=== PATIENT | female | born 1965 | race African-American/Black ===

== ENCOUNTER 2016-04-12 17:20 | Emergency (ER) | payer MEDICAID ==
[2016-04-12] MEDS ORDERED: ASPIRIN 81 MG TABLET, CHEWABLE PO ONE (17:45)
--- NOTE | 2016-04-12 17:45 | ER Document Report ---
ED Medical Screen (RME) - General Stated Complaint: COUGH Mode of Arrival: Ambulatory Information source: Patient Notes: Patient complains of cough for the past 2 weeks that worsened today. Patient denies any fever. Cough has been nonproductive. Patient complains of chest pain that she trips to congestion. hx: CHF, hypertension, diabetes I have greeted and performed a rapid initial assessment of this patient. A comprehensive ED assessment and evaluation of the patient, analysis of test results and completion of the medical decision making process will be conducted by additional ED providers. TRAVEL OUTSIDE OF THE [place] IN LAST 30 DAYS: No - Related Data Allergies/Adverse Reactions: No Known Allergies Allergy (Verified 04/12/16 17:41) Past Medical History - Past Medical History Cardiac Medical History: Reports: Hx Congestive Heart Failure, Hx Coronary Artery Disease - High cholesterol, Hx Hypercholesterolemia, Hx Hypertension Denies: Hx Heart Attack Pulmonary Medical History: Denies: Hx Asthma, Hx Bronchitis, Hx COPD, Hx Pneumonia Neurological Medical History: Denies: Hx Cerebrovascular Accident, Hx Seizures Endocrine Medical History: Reports: Hx Diabetes Mellitus Type 2 Musculoskeltal Medical History: Reports Hx Arthritis - Osteoarthritis Psychiatric Medical History: Reports: Hx Depression Past Surgical History: Reports: Hx Cardiac Catheterization, Hx Orthopedic Surgery. Denies: Hx Hysterectomy, Hx Pacemaker - Immunizations Hx Diphtheria, Pertussis, Tetanus Vaccination: Yes Physical Exam - Vital signs Vitals: Temp Pulse Resp BP Pulse Ox 98.4 F 90 20 143/88 H 95 04/12/16 17:31 04/12/16 17:31 04/12/16 17:31 04/12/16 17:31 04/12/16 17:31 - Respiratory Respiratory status: No respiratory distress Chest status: Nontender Breath sounds: Nonproductive cough Course - Vital Signs Vital signs: Temp Pulse Resp BP Pulse Ox 98.4 F 90 20 143/88 H 95 04/12/16 17:31 04/12/16 17:31 04/12/16 17:31 04/12/16 17:31 04/12/16 17:31
[2016-04-12] MEDS ORDERED: NORMAL SALINE 1000 ML 1,000 ML IV PRN (19:13)
[2016-04-12] MEDS ORDERED: BENZONATATE 100 MG CAPSULE PO ONE (19:13)
[2016-04-12] MEDS ORDERED: ONDANSETRON HCL INJ/PF 4 MG/2 ML SDV IV ONE (19:13)
--- NOTE | 2016-04-12 19:16 | ER Document Report ---
ED Respiratory Problem - General Chief Complaint: Cough Stated Complaint: COUGH Time seen by provider: 19:14 Mode of Arrival: Ambulatory Information source: Patient TRAVEL OUTSIDE OF THE [place] IN LAST 30 DAYS: No - HPI Patient complains to provider of: Chest pain, Cough, Short of breath Onset: Other - Weeks Duration: Continuous Quality of pain: Achy Severity: Moderate Pain Level: 3 Context: Hx CHF, Smoker Short of Breath: Mild Chest pain/discomfort: Tightness Cough: Productive Sputum amount: Small Sputum color: Yellow Sputum consistency: Mucoid Associated symptoms: Chest pain/discomfort, Congestion, Cough, Headache, Short of breath Similar symptoms previously: Yes Recently seen / treated by doctor: No Notes: Patient is a 50-year-old female with a history of hypertension, diabetes and congestive heart failure, who presents to the emergency room complaining of cough with chest tightness and congestion over the past 2 weeks, subjective fever, cough is productive of yellowish colored phlegm, she reports that the cough is painful, and she associates mild shortness of breath and generalized fatigue associated with symptoms, she reports her grandson was sick with similar symptoms recently, she denies any vomiting, no dysuria, no recent travel , she has attempted to take Robitussin at home for the symptoms with minimal relief - Related Data Allergies/Adverse Reactions: No Known Allergies Allergy (Verified 04/12/16 17:41) Past Medical History - General Information source: Patient - Social History Smoking Status: Current Every Day Smoker Chew tobacco use (# tins/day): No Frequency of alcohol use: Occasional Drug Abuse: None Family History: Reviewed & Not Pertinent Patient has suicidal ideation: No Patient has homicidal ideation: No - Past Medical History Cardiac Medical History: Reports: Hx Congestive Heart Failure, Hx Coronary Artery Disease - High cholesterol, Hx Hypercholesterolemia, Hx Hypertension Denies: Hx Heart Attack Pulmonary Medical History: Denies: Hx Asthma, Hx Bronchitis, Hx COPD, Hx Pneumonia Neurological Medical History: Denies: Hx Cerebrovascular Accident, Hx Seizures Endocrine Medical History: Reports: Hx Diabetes Mellitus Type 2 Renal/ Medical History: Denies: Hx Peritoneal Dialysis Musculoskeltal Medical History: Reports Hx Arthritis - Osteoarthritis Psychiatric Medical History: Reports: Hx Depression Past Surgical History: Reports: Hx Cardiac Catheterization, Hx Orthopedic Surgery. Denies: Hx Hysterectomy, Hx Pacemaker - Immunizations Hx Diphtheria, Pertussis, Tetanus Vaccination: Yes Review of Systems - Review of Systems Constitutional: Fever, Malaise EENT: Nose congestion Cardiovascular: Chest pain Respiratory: Cough, Short of breath Gastrointestinal: No symptoms reported Genitourinary: No symptoms reported Female Genitourinary: No symptoms reported Musculoskeletal: See HPI - Body aches Skin: No symptoms reported Hematologic/Lymphatic: No symptoms reported Neurological/Psychological: Headaches -: Yes All other systems reviewed and negative Physical Exam - Vital signs Vitals: Temp Pulse Resp BP Pulse Ox 98.4 F 90 20 143/88 H 95 04/12/16 17:31 04/12/16 17:31 04/12/16 17:31 04/12/16 17:31 04/12/16 17:31 Interpretation: Hypertensive - General General appearance: Alert In distress: None - HEENT Head: Normocephalic, Atraumatic Eyes: Normal Conjunctiva: Normal Extraocular movements intact: Yes Eyelashes: Normal Pupils: PERRL Sinus: Maxillary - Mild tenderness Nasal: Clear rhinorrhea Mouth/Lips: Normal Mucous membranes: Normal Pharynx: Normal Neck: Normal - Respiratory Respiratory status: No respiratory distress Chest status: Nontender Breath sounds: Normal Chest palpation: Normal - Cardiovascular Rhythm: Regular Heart sounds: Normal auscultation Murmur: No - Abdominal Inspection: Normal Distension: No distension Bowel sounds: Normal Tenderness: Nontender Organomegaly: No organomegaly - Back Back: Normal, Nontender - Extremities General upper extremity: Normal inspection, Nontender, Normal color, Normal ROM , Normal temperature General lower extremity: Normal inspection, Nontender, Normal color, Normal ROM , Normal temperature. No: Edu's sign - Neurological Neuro grossly intact: Yes Cognition: Normal Orientation: AAOx4 [place] Coma Scale Eye Opening: Spontaneous [place] Coma Scale Verbal: Oriented [place] Coma Scale Motor: Obeys Commands [place] Coma Scale Total: 15 Speech: Normal Motor strength normal: LUE, RUE, LLE, RLE Sensory: Normal - Psychological Associated symptoms: Normal affect, Normal mood - Skin Skin Temperature: Warm Skin Moisture: Dry Skin Color: Normal Course - Re-evaluation Re-evalutation: 04/12/16 20:20 Patient resting comfortably, reports no change in symptoms, additional cough suppressant medication and antibiotics have been ordered, lab and imaging findings were discussed with patient at bedside, patient will be discharged with prescriptions and information for follow-up, advised to return if symptoms worsen, patient acknowledges understanding and agreement with this plan - Vital Signs Vital signs: Temp Pulse Resp BP Pulse Ox 98.4 F 90 18 143/88 H 95 04/12/16 17:31 04/12/16 17:31 04/12/16 18:54 04/12/16 17:31 04/12/16 17:31 - Laboratory Result Diagrams: 04/12/16 19:31 04/12/16 19:31 Laboratory results interpreted by me: 04/12/16 04/12/16 04/12/16 19:31 19:31 19:31 MCH 26.5 L MCHC 31.2 L Glucose 115 H NT-Pro-B Natriuret Pep 1200 H - Diagnostic Test Radiology reviewed: Image reviewed, Reports reviewed - EKG Interpretation by Me EKG shows normal: Sinus rhythm Rate: Normal Rhythm: NSR, PVC's - Ventricular trigeminy When compared to previous EKG there are: No significant change Discharge - Discharge Clinical Impression: Acute bronchitis Qualifiers: Bronchitis organism: unspecified organism Qualified Code(s): J20.9 - Acute bronchitis, unspecified Condition: Stable Disposition: HOME, SELF-CARE Instructions: Bronchitis ([facility]) Additional Instructions: Follow up with your primary care provider in one to 2 days. Return to the emergency room immediately if symptoms worsen or any additional concerns. Prescriptions: Azithromycin [Zithromax 250 mg Tablet] 250 mg PO ASDIR PRN #4 tablet PRN Reason: Codeine/Promethazine HCl [Promethazine-Codeine Syrup] 5 ml PO Q6 PRN #120 ml PRN Reason: Cough
[2016-04-12 19:42] LABS: ABSOLUTE BASOPHILS # (AUTO) 0.1 10^3/uL (0.0-0.2); ABSOLUTE EOSINOPHILS # (AUTO) 0.1 10^3/uL (0.0-0.6); ABSOLUTE LYMPHOCYTES (AUTO) 3.2 10^3/uL (0.5-4.7); ABSOLUTE MONOCYTES (AUTO) 0.6 10^3/uL (0.1-1.4); ABSOLUTE NEUT (AUTO) 5.5 10^3/uL (1.7-8.2); BASOPHILS % (AUTO) 0.7 % (0-2); EOSINOPHILS % (AUTO) 1.1 % (0-6); HEMATOCRIT 38.9 % (36.0-47.0); HEMOGLOBIN 12.1 g/dL (12.0-15.5); HGB HCT DIFFERENCE -2.6; LYMPHOCYTES % (AUTO) 33.4 % (13-45); MEAN CORPUSCULAR HEMOGLOBIN 26.5 pg (27.0-33.4); MEAN CORPUSCULAR HGB CONC 31.2 g/dL (32.0-36.0); MEAN CORPUSCULAR VOLUME 85 fl (80-97); MONOCYTES % (AUTO) 6.7 % (3-13); RED BLOOD COUNT 4.57 10^6/uL (3.72-5.28); RED CELL DISTRIBUTION WIDTH 13.4 % (11.5-14.0); SEGMENTED NEUTROPHILS % (AUTO) 58.1 % (42-78); WHITE BLOOD COUNT 9.5 10^3/uL (4.0-10.5)
[2016-04-12 20:00] LABS: ALANINE AMINOTRANSFERASE 22 U/L (9-52); ALBUMIN 3.9 g/dL (3.5-5.0); ALKALINE PHOSPHATASE 79 U/L (38-126); ANION GAP 13 (5-19); ASPARTATE AMINO TRANSFERASE 18 U/L (14-36); BILIRUBIN,TOTAL 0.5 mg/dL (0.2-1.3); BLOOD UREA NITROGEN 18 mg/dL (7-20); CALCIUM 9.4 mg/dL (8.4-10.2); CARBON DIOXIDE 27 mmol/L (22-30); CHLORIDE 103 mmol/L (98-107); CREATINE KINASE 45 U/L (30-135); GLUCOSE 115 mg/dL (75-110); MAGNESIUM 1.7 mg/dL (1.6-2.3); POTASSIUM 4.3 mmol/L (3.6-5.0); SODIUM 142.6 mmol/L (137-145); TOTAL PROTEIN 6.8 g/dL (6.3-8.2)
[2016-04-12 20:12] LABS: TROPONIN I 0.013 ng/mL
[2016-04-12 20:13] LABS: CREATINE KINASE MB < 0.22 ng/mL (<4.55)
[2016-04-12] MEDS ORDERED: GUAIFENESIN/D-METHORPHAN (200-20 MG) SYRUP 10 ML PO ONE ×2 (20:20→20:22)
[2016-04-12] MEDS ORDERED: AZITHROMYCIN 250 MG TABLET PO ONE (20:20)
[2016-04-12 20:39] VITALS: BP 132/80
--- NOTE | 2016-04-13 08:15 | EKG REPORT ---
SEVERITY:- ABNORMAL ECG - SINUS RHYTHM VENTRICULAR TRIGEMINY LVH WITH IVCD AND SECONDARY REPOL ABNRM : Confirmed by: Ryan Segovia MD 13-Apr-2016 08:15:31
== END 2016-04-12 20:38 | disposition home or self-care (01) ==
LOC: ER 17:20
DX: J20.9 Acute bronchitis, unspecified (principal); R05 Cough; I10 Essential (primary) hypertension; E11.9 Type 2 diabetes mellitus without complications; I50.9 Heart failure, unspecified
CPT/HCPCS: 93005; 99284; 96360; 36415; 82553; 82550; 83735; 85025; 80053; 84484; 83880; 71020; 93010; J3490 ×2; Q0144; J7030

== ENCOUNTER 2017-07-18 04:09 | Emergency (ER) | payer MEDICAID ==
--- NOTE | 2017-07-18 05:08 | ER Document Report ---
ED General <VILLASEÑORDAMON BELL - Last Filed: 07/18/17 13:07> - General TRAVEL OUTSIDE OF THE [place] IN LAST 30 DAYS: No <CATHY AL - Last Filed: 07/18/17 19:30> - General Chief Complaint: Chest Pain Stated Complaint: CHEST PAIN Time Seen by Provider: 07/18/17 04:50 Notes: patient is a 51-year-old female patient is a 51-year-old female who presents emergency department the chief complaint of chest pain. Patient states that she had initial episode yesterday lasting about 3 hours. Patient states that she was sitting stationary when she had left chest wall pressure that improved after she took her home coreg. She denies any sharp stabbing pain, heartburn. Patient states that this evening approximately an hour after physical activity she had return of the same chest pressure in the left lateral chest wall that was not reproducible palpation. At this time she states she is chest pain-free. Primary care physician is Dr. De La Garza, follows with coding educator in [facility]. Past medical history significant for dilated cardiomyopathy status post AICD placement, hypertension, diabetes, hyperlipidemia, coronary artery disease, history of pancreatitis. Home medications include spironolactone, Crestor, Altace, Percocet, metformin, Amaryl, Lasix, digoxin, Coreg (CATHY AL) - Related Data Allergies/Adverse Reactions: No Known Allergies Allergy (Verified 04/12/16 17:41) Past Medical History - Social History Smoking Status: Current Every Day Smoker Chew tobacco use (# tins/day): No Frequency of alcohol use: None Drug Abuse: None Family History: Reviewed & Not Pertinent Patient has suicidal ideation: No Patient has homicidal ideation: No - Past Medical History Cardiac Medical History: Reports: Hx Congestive Heart Failure, Hx Coronary Artery Disease - High cholesterol, Hx Hypercholesterolemia, Hx Hypertension Denies: Hx Heart Attack Pulmonary Medical History: Denies: Hx Asthma, Hx Bronchitis, Hx COPD, Hx Pneumonia Neurological Medical History: Denies: Hx Cerebrovascular Accident, Hx Seizures Endocrine Medical History: Reports: Hx Diabetes Mellitus Type 2 Renal/ Medical History: Denies: Hx Peritoneal Dialysis Musculoskeltal Medical History: Reports Hx Arthritis - Osteoarthritis Psychiatric Medical History: Reports: Hx Depression Past Surgical History: Reports: Hx Cardiac Catheterization, Hx Orthopedic Surgery. Denies: Hx Hysterectomy, Hx Pacemaker - Immunizations Hx Diphtheria, Pertussis, Tetanus Vaccination: Yes <CATHY AL - Last Filed: 07/18/17 19:30> Review of Systems - Review of Systems Constitutional: No symptoms reported EENT: No symptoms reported Cardiovascular: See HPI Respiratory: No symptoms reported Gastrointestinal: No symptoms reported Musculoskeletal: No symptoms reported Skin: No symptoms reported Neurological/Psychological: No symptoms reported -: Yes All other systems reviewed and negative <CATHY AL - Last Filed: 07/18/17 19:30> Physical Exam <DAMON VILLASEÑOR - Last Filed: 07/18/17 13:07> <CATHY AL - Last Filed: 07/18/17 19:30> - Vital signs Vitals: Resp Pulse Ox 22 H 93 07/18/17 04:33 07/18/17 04:33 - Notes Notes: PHYSICAL EXAM GENERAL: Alert, interacts well. HEAD: Normocephalic, atraumatic. EYES: Pupils equal, round, and reactive to light. Extraocular movements intact. ENT: Oral mucosa moist, tongue midline. NECK: Full range of motion. Supple. Trachea midline. LUNGS: Clear to auscultation bilaterally, no wheezes, rales, or rhonchi. No respiratory distress. HEART: Regular rate and rhythm. No murmurs, gallops, or rubs. ABDOMEN: Soft, nondistended, nontender. No guarding, rebound, or rigidity.. Bowel sounds present in all 4 quadrants. EXTREMITIES: Moves all 4 extremities spontaneously. No edema, radial and dorsalis pedis pulses 2/4 bilaterally. No cyanosis. NEUROLOGICAL: Alert and oriented x4. Normal speech. PSYCH: Normal affect, normal mood. SKIN: Warm, dry, normal turgor. No rashes or lesions noted. (CATHY AL) Course - Laboratory Result Diagrams: 07/18/17 05:15 07/18/17 05:15 <DAMON VILLASEÑOR - Last Filed: 07/18/17 13:07> - Laboratory Result Diagrams: 07/18/17 05:15 07/18/17 05:15 - Diagnostic Test Radiology reviewed: Image reviewed, Reports reviewed - EKG Interpretation by Me EKG shows normal: Sinus rhythm. abnormal: ST-T Waves Rate: Normal Rhythm: PVC's [place]/QRS: IVCD When compared to previous EKG there are: No significant change <CATHY AL - Last Filed: 07/18/17 19:30> - Re-evaluation Re-evalutation: 07/18/17 13:07 Patient currently chest pain-free at this time. She remained stable. Repeat troponin is now elevated at 0.853. This is twice what her earlier troponin was. I have called and discussed this with coding educator who has agreed to admit the patient to [facility]. The patient will be transferred there. She currently has nitro paste on her chest and the coding educator at that that was fine that she required no further treatment at this time. Patient will be transferred to [facility] as soon as possible. Mortgage Loan Underwriter stated that the patient is okay to eat while waiting. (DAMON VILLASEÑOR) 07/18/17 06:12 Patient is a 51-year-old female who is hemodynamically stable, no acute distress. Troponin did come back elevated at 0.430. Patient also states that she has return of her chest pain and rating it as a 2/5, described as pressure. Presentation is concerning for a NSTEMI. Repeat EKG was ordered. 07/18/17 07:40 patients chest pain returned, about a 3/5 in severity. Will start nitro gtt 07/18/17 07:54 Mortgage Loan Underwriter pony edger requesting repeat troponin at 915. Signed case to Damon Villaseñor NP 07/18/17 19:30 Transport at the bedside. VSS. Patient chest pain free. A&Ox4. stable for transport (CATHY AL) - Vital Signs Vital signs: Temp Pulse Resp BP Pulse Ox 98.2 F 85 16 98/56 L 94 07/18/17 19:01 07/18/17 05:01 07/18/17 19:01 07/18/17 19:01 07/18/17 19:01 - Laboratory Laboratory results interpreted by me: 07/18/17 07/18/17 05:15 05:15 Hgb 11.9 L BUN 23 H Glucose 143 H Discharge <DAMON VILLASEÑOR - Last Filed: 07/18/17 13:07> <CATHY AL - Last Filed: 07/18/17 19:30> - Discharge Disposition: [facility] Referrals: ALVARADO DE LA GARZA MD [Primary Care Provider] - Follow up as needed
[2017-07-18 05:26] LABS: ABSOLUTE BASOPHILS # (AUTO) 0.1 10^3/uL (0.0-0.2); ABSOLUTE LYMPHOCYTES (AUTO) 3.6 10^3/uL (0.5-4.7); ABSOLUTE MONOCYTES (AUTO) 0.4 10^3/uL (0.1-1.4); ABSOLUTE NEUT (AUTO) 4.2 10^3/uL (1.7-8.2); BASOPHILS % (AUTO) 1.3 % (0-2); EOSINOPHILS % (AUTO) 0.3 % (0-6); HEMATOCRIT 36.6 % (36.0-47.0); HEMOGLOBIN 11.9 g/dL (12.0-15.5); LYMPHOCYTES % (AUTO) 42.9 % (13-45); MEAN CORPUSCULAR HEMOGLOBIN 27.1 pg (27.0-33.4); MEAN CORPUSCULAR HGB CONC 32.5 g/dL (32.0-36.0); MEAN CORPUSCULAR VOLUME 83 fl (80-97); MONOCYTES % (AUTO) 5.3 % (3-13); PLATELET COUNT 207 10^3/uL (150-450); RED BLOOD COUNT 4.39 10^6/uL (3.72-5.28); RED CELL DISTRIBUTION WIDTH 13.8 % (11.5-14.0); SEGMENTED NEUTROPHILS % (AUTO) 50.2 % (42-78); TOTAL CELLS COUNTED % (AUTO) 100 %; WHITE BLOOD COUNT 8.3 10^3/uL (4.0-10.5)
[2017-07-18 05:43] LABS: ALANINE AMINOTRANSFERASE 15 U/L (9-52); ALBUMIN 4.3 g/dL (3.5-5.0); ALKALINE PHOSPHATASE 50 U/L (38-126); ANION GAP 13 (5-19); ASPARTATE AMINO TRANSFERASE 22 U/L (14-36); BILIRUBIN,DIRECT 0.4 mg/dL (0.0-0.4); BILIRUBIN,TOTAL 0.6 mg/dL (0.2-1.3); BLOOD UREA NITROGEN 23 mg/dL (7-20); CALCIUM 9.8 mg/dL (8.4-10.2); CARBON DIOXIDE 23 mmol/L (22-30); CHLORIDE 103 mmol/L (98-107); CREATINE KINASE 70 U/L (30-135); GLUCOSE 143 mg/dL (75-110); POTASSIUM 4.5 mmol/L (3.6-5.0); SODIUM 138.9 mmol/L (137-145); TOTAL PROTEIN 7.5 g/dL (6.3-8.2)
[2017-07-18 05:55] LABS: CREATINE KINASE MB 1.89 ng/mL (<4.55)
[2017-07-18 06:01] LABS: TROPONIN I 0.43 ng/mL
[2017-07-18] MEDS ORDERED: ASPIRIN 81 MG TABLET, CHEWABLE PO ONE (06:06)
[2017-07-18] MEDS: NITROGLYCERIN 0.4 MG/TAB 25 TAB/BOTTLE SL PRN ×2 (06:11→06:24)
--- NOTE | 2017-07-18 06:19 | RADIOLOGY REPORT (SQ) ---
EXAM DESCRIPTION: CHEST SINGLE VIEW CLINICAL HISTORY: 51 years Female, chest pain COMPARISON: 1.17.17 NUMBER OF VIEWS/TECHNIQUE: 1/AP LIMITATIONS: None. FINDINGS: Mildly enlarged cardiac silhouette, clear lungs, left cardiac stent inflation device and leads, atherosclerosis, and mild scoliotic curvature. IMPRESSION: Mild cardiac enlargement.
[2017-07-18] MEDS ORDERED: NITROGLYCERIN/D5W 50 MG/250 ML RTUINJ IV PRN (07:40)
--- NOTE | 2017-07-18 07:46 | EKG REPORT ---
SEVERITY:- ABNORMAL ECG - SINUS TACHYCARDIA PAIRED VENTRICULAR PREMATURE COMPLEXES LVH WITH IVCD AND SECONDARY REPOL ABNRM : Confirmed by: Ryan Segovia MD 18-Jul-2017 07:45:20
--- NOTE | 2017-07-18 07:46 | EKG REPORT ---
SEVERITY:- ABNORMAL ECG - SINUS RHYTHM LVH WITH IVCD AND SECONDARY REPOL ABNRM : Confirmed by: Ryan Segovia MD 18-Jul-2017 07:45:36
[2017-07-18] MEDS ORDERED: NITROGLYCERIN 2% OINTMENT 1 GM PACKET TP ONE (07:51)
[2017-07-18 19:11] VITALS: BP 98/56
== END 2017-07-18 19:19 | disposition short-term general hospital (02) ==
LOC: ER 04:09
DX: I21.4 Non-ST elevation (NSTEMI) myocardial infarction (principal); R07.9 Chest pain, unspecified; I50.9 Heart failure, unspecified; I25.10 Atherosclerotic heart disease of native coronary artery without angina pectoris; E78.00 Pure hypercholesterolemia, unspecified; I11.0 Hypertensive heart disease with heart failure; E11.9 Type 2 diabetes mellitus without complications; Z95.810 Presence of automatic (implantable) cardiac defibrillator
CPT/HCPCS: 93005; 99285; 36415; 82553; 82550; 85025; 80053; 84484; 71045; 93010; J3490 ×2

== ENCOUNTER 2017-08-17 16:45 | Emergency (ER) | payer MEDICAID ==
[2017-08-17] MEDS ORDERED: RINGERS SOLUTION,LACTATED 1,000 ML IV ONE (18:12)
--- NOTE | 2017-08-17 18:14 | ER Document Report ---
ED Medical Screen (RME) - General Chief Complaint: Low Blood Pressure Stated Complaint: BLOOD PRESSURE ISSUE Time Seen by Provider: 08/17/17 18:08 Notes: RAPID MEDICAL EVALUATION DISCLOSURE I have seen this patient as part of a Rapid Medical Evaluation and, if applicable, placed any initially appropriate orders. The patient will be seen and fully evaluated, including a full history and physical exam, by a provider ( in Main ED or Fast Track) when a room becomes available. 51-year-old female here with complaints of cough congestion runny nose ongoing for the past 2 weeks and progressively worsening. The cough is productive of green sputum. She has been feeling weak all over as well. Today she checked her blood pressures and they were in the 70s and 80s systolic. Her usual blood pressures are in the 120s systolic. She has not had any changes in blood pressure medicine recently. She has not taken more of her medicine than she should have. EXAM Mild diffuse coarse breath sounds bilaterally TRAVEL OUTSIDE OF THE [place] IN LAST 30 DAYS: No - Related Data Allergies/Adverse Reactions: No Known Allergies Allergy (Verified 04/12/16 17:41) Past Medical History - Social History Chew tobacco use (# tins/day): No Frequency of alcohol use: None Drug Abuse: None - Past Medical History Cardiac Medical History: Reports: Hx Congestive Heart Failure, Hx Coronary Artery Disease - High cholesterol, Hx Hypercholesterolemia, Hx Hypertension Denies: Hx Heart Attack Pulmonary Medical History: Denies: Hx Asthma, Hx Bronchitis, Hx COPD, Hx Pneumonia Neurological Medical History: Denies: Hx Cerebrovascular Accident, Hx Seizures Endocrine Medical History: Reports: Hx Diabetes Mellitus Type 2 Renal/ Medical History: Denies: Hx Peritoneal Dialysis Musculoskeltal Medical History: Reports Hx Arthritis - Osteoarthritis Psychiatric Medical History: Reports: Hx Depression Past Surgical History: Reports: Hx Cardiac Catheterization, Hx Orthopedic Surgery. Denies: Hx Hysterectomy, Hx Pacemaker - Immunizations Hx Diphtheria, Pertussis, Tetanus Vaccination: Yes Physical Exam - Vital signs Vitals: Temp Pulse Resp BP Pulse Ox 98.4 F 80 20 96/57 L 95 08/17/17 16:58 05/24/18 16:58 08/17/17 16:58 08/17/17 16:58 08/17/17 16:58 Course - Vital Signs Vital signs: Temp Pulse Resp BP Pulse Ox 98.4 F 80 20 96/57 L 95 08/17/17 16:58 08/17/17 16:58 08/17/17 16:58 08/17/17 16:58 08/17/17 16:58
[2017-08-17 18:44] LABS: ABSOLUTE BASOPHILS # (AUTO) 0.1 10^3/uL (0.0-0.2); ABSOLUTE LYMPHOCYTES (AUTO) 4.3 10^3/uL (0.5-4.7); ABSOLUTE MONOCYTES (AUTO) 1.4 10^3/uL (0.1-1.4); ABSOLUTE NEUT (AUTO) 7.2 10^3/uL (1.7-8.2); EOSINOPHILS % (AUTO) 0.3 % (0-6); HEMATOCRIT 37.3 % (36.0-47.0); HEMOGLOBIN 12.3 g/dL (12.0-15.5); LYMPHOCYTES % (AUTO) 32.9 % (13-45); MEAN CORPUSCULAR HGB CONC 32.9 g/dL (32.0-36.0); MEAN CORPUSCULAR VOLUME 82 fl (80-97); MONOCYTES % (AUTO) 10.5 % (3-13); PLATELET COUNT 219 10^3/uL (150-450); RED BLOOD COUNT 4.54 10^6/uL (3.72-5.28); RED CELL DISTRIBUTION WIDTH 13.6 % (11.5-14.0); SEGMENTED NEUTROPHILS % (AUTO) 55.3 % (42-78); TOTAL CELLS COUNTED % (AUTO) 100 %; WHITE BLOOD COUNT 13.1 10^3/uL (4.0-10.5)
--- NOTE | 2017-08-17 18:58 | RADIOLOGY REPORT (SQ) ---
EXAM DESCRIPTION: CHEST 2 VIEWS COMPLETED DATE/TIME: 08/17/2017 6:49 pm REASON FOR STUDY: cough; hypotensive; eval pneumonia COMPARISON: None. EXAM PARAMETERS: NUMBER OF VIEWS: two views TECHNIQUE: Digital Frontal and Lateral radiographic views of the chest acquired. RADIATION DOSE: NA LIMITATIONS: none FINDINGS: LUNGS AND PLEURA: Ill-defined opacification is seen in right mid lung. MEDIASTINUM AND HILAR STRUCTURES: No masses or contour abnormalities. HEART AND VASCULAR STRUCTURES: Heart size is borderline. There is no evidence of failure. BONES: No acute findings. HARDWARE: Pacemaker/defibrillator. OTHER: No other significant finding. IMPRESSION: 1. Cannot exclude a very minimal infiltrate in the middle lobe. 2. Borderline cardiomegaly with no failure. TECHNICAL DOCUMENTATION: JOB ID: [id number] [employer]- All Rights Reserved Reading location - IP/workstation name: [email or web address]
--- NOTE | 2017-08-17 19:23 | ER Document Report ---
ED General - General Chief Complaint: Low Blood Pressure Stated Complaint: BLOOD PRESSURE ISSUE Time Seen by Provider: 08/17/17 18:08 TRAVEL OUTSIDE OF THE [place] IN LAST 30 DAYS: No - HPI Notes: 51-year-old female with heart failure, diabetes multiple medical problems presents with cough and not feeling well. Beginning approximately week and a half ago she began to have nasal congestion cough productive of clear sputum. States she has had some increased shortness of breath and worsening cough over the last several days. No associated chest pain. No fever. At times has felt dizzy. No recent antibiotic use. No recent hospitalization. No other modifying factors, no other associated symptoms, no other provocative or palliative factors. - Related Data Allergies/Adverse Reactions: No Known Allergies Allergy (Verified 04/12/16 17:41) Past Medical History - Social History Smoking Status: Former Smoker Chew tobacco use (# tins/day): No Frequency of alcohol use: None Drug Abuse: None Family History: Reviewed & Not Pertinent Patient has suicidal ideation: No Patient has homicidal ideation: No - Past Medical History Cardiac Medical History: Reports: Hx Congestive Heart Failure, Hx Coronary Artery Disease - High cholesterol, Hx Hypercholesterolemia, Hx Hypertension Denies: Hx Heart Attack Pulmonary Medical History: Denies: Hx Asthma, Hx Bronchitis, Hx COPD, Hx Pneumonia Neurological Medical History: Denies: Hx Cerebrovascular Accident, Hx Seizures Endocrine Medical History: Reports: Hx Diabetes Mellitus Type 2 Renal/ Medical History: Denies: Hx Peritoneal Dialysis Musculoskeltal Medical History: Reports Hx Arthritis - Osteoarthritis Psychiatric Medical History: Reports: Hx Depression Past Surgical History: Reports: Hx Cardiac Catheterization, Hx Orthopedic Surgery. Denies: Hx Hysterectomy, Hx Pacemaker - Immunizations Hx Diphtheria, Pertussis, Tetanus Vaccination: Yes Review of Systems - Review of Systems Notes: Review of systems as in the history of present illness, otherwise negative. Physical Exam - Vital signs Vitals: Temp Pulse Resp BP Pulse Ox 98.4 F 80 20 96/57 L 95 08/17/17 16:58 08/17/17 16:58 08/17/17 16:58 08/17/17 16:58 08/17/17 16:58 - Notes Notes: General: Well developed . HEENT: Normocephalic, atraumatic. Pupils equal round reactive to light. No JVD. I mucosa Chest: No trauma. Respiratory: Good air exchange, normal excursion. Cardiac: Regular rhythm. No murmurs or gallops. Abdomen: Soft, benign. Nondistended. Nontender. Back: No asymmetry or gross abnormality. Motor: Grossly normal power and tone. Neurologic: Alert, nonfocal. Cranial nerves II-12 are intact. Sensation intact. Vascular: Well perfused. Normal peripheral pulses. Skin: No petechiae or purpura. Course - Re-evaluation Re-evalutation: 08/17/17 19:22 51-year-old female with the after mentioned symptoms. Consider Viral URI, bronchitis or pneumonia. Patient seen by the physician in triage ordered extensive laboratory and radiographic evaluation. Current labs are available and show mild leukocytosis. Chemistries are pending. X-ray shows some equivocal evidence of right middle lobe infiltrate. Patient is otherwise nontoxic in appearance. She is received 500 cc of crystalloid bolus prior to my evaluation and I will hold additional fluids. We will likely treat her outpatient for pneumonia she has no other high risk features. 08/17/17 20:25 Chemistries reviewed, creatinine is 1.76 which was up from several days ago. However, patient states she is taking Lasix and urinating quite a bit. Remainder labs are unremarkable. Lactic acid is normal. Going to treat patient with oral doxycycline. Prescription for the same. Antitussives. She is advised to hold her Lasix for the next couple of days, increase hydration and have her creatinine rechecked. She declined my offer for observation admission. - Vital Signs Vital signs: Temp Pulse Resp BP Pulse Ox 98.4 F 80 20 96/57 L 100 08/17/17 16:58 08/17/17 16:58 08/17/17 16:58 08/17/17 16:58 08/17/17 18:29 - Laboratory Result Diagrams: 08/17/17 18:27 08/17/17 19:09 Laboratory results interpreted by me: 08/17/17 08/17/17 18:27 19:09 WBC 13.1 H Sodium 135.0 L Chloride 93 L BUN 36 H Creatinine 1.76 H Est GFR ( Amer) 37 L Est GFR (Non-Af Amer) 30 L Glucose 113 H AST 13 L Discharge - Discharge Clinical Impression: Renal insufficiency Pneumonia Qualifiers: Pneumonia type: due to unspecified organism Laterality: right Lung location: unspecified part of lung Qualified Code(s): J18.9 - Pneumonia, unspecified organism Condition: Good Disposition: HOME, SELF-CARE Instructions: Pneumonia ([facility]), Kidney Injury ([facility]) Additional Instructions: See her primary care doctor over the next 48 hours Prescriptions: Benzonatate [Tessalon Perle 100 mg Capsule] 100 mg PO ASDIR PRN #20 cap PRN Reason: Cough Doxycycline Hyclate 100 mg PO BID #14 capsule
[2017-08-17 19:51] LABS: ALANINE AMINOTRANSFERASE 19 U/L (9-52); ALBUMIN 4.2 g/dL (3.5-5.0); ALKALINE PHOSPHATASE 56 U/L (38-126); ANION GAP 18 (5-19); ASPARTATE AMINO TRANSFERASE 13 U/L (14-36); BILIRUBIN,DIRECT 0.4 mg/dL (0.0-0.4); BILIRUBIN,TOTAL 0.8 mg/dL (0.2-1.3); BLOOD UREA NITROGEN 36 mg/dL (7-20); CALCIUM 9.4 mg/dL (8.4-10.2); CARBON DIOXIDE 24 mmol/L (22-30); CHLORIDE 93 mmol/L (98-107); GLUCOSE 113 mg/dL (75-110); POTASSIUM 4.4 mmol/L (3.6-5.0)
[2017-08-17] MEDS ORDERED: DOXYCYCLINE HYCLATE 100 MG TABLET PO ONE (20:22)
[2017-08-17 21:01] VITALS: BP 100/72
== END 2017-08-17 20:45 | disposition home or self-care (01) ==
LOC: ER 16:45
DX: J18.9 Pneumonia, unspecified organism (principal); N28.9 Disorder of kidney and ureter, unspecified; I11.0 Hypertensive heart disease with heart failure; I50.9 Heart failure, unspecified; Z79.899 Other long term (current) drug therapy; I25.10 Atherosclerotic heart disease of native coronary artery without angina pectoris; E11.9 Type 2 diabetes mellitus without complications; R05 Cough; R09.81 Nasal congestion; R06.02 Shortness of breath; R42 Dizziness and giddiness; Z87.891 Personal history of nicotine dependence
CPT/HCPCS: 99285; 96360; 36415; 87040; 85025; 80053; 83605; 71046; J3490; J7120

== ENCOUNTER 2018-01-13 17:12 | Emergency (ER) | payer OTHER, MEDICAID ==
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
[2018-01-13 19:00] LABS: ABSOLUTE BASOPHILS # (AUTO) 0.1 10^3/uL (0.0-0.2); ABSOLUTE EOSINOPHILS # (AUTO) 0.1 10^3/uL (0.0-0.6); ABSOLUTE LYMPHOCYTES (AUTO) 4.5 10^3/uL (0.5-4.7); ABSOLUTE MONOCYTES (AUTO) 0.5 10^3/uL (0.1-1.4); BASOPHILS % (AUTO) 1.6 % (0-2); HEMOGLOBIN 13.7 g/dL (12.0-15.5); LYMPHOCYTES % (AUTO) 55.6 % (13-45); MEAN CORPUSCULAR HEMOGLOBIN 28.5 pg (27.0-33.4); MEAN CORPUSCULAR HGB CONC 33.5 g/dL (32.0-36.0); MEAN CORPUSCULAR VOLUME 85 fl (80-97); MONOCYTES % (AUTO) 5.8 % (3-13); PLATELET COUNT 250 10^3/uL (150-450); RED BLOOD COUNT 4.83 10^6/uL (3.72-5.28); RED CELL DISTRIBUTION WIDTH 13.4 % (11.5-14.0); TOTAL CELLS COUNTED % (AUTO) 100 %; WHITE BLOOD COUNT 8.2 10^3/uL (4.0-10.5)
[2018-01-13 19:05] LABS: ANION GAP 11 (5-19); BLOOD UREA NITROGEN 24 mg/dL (7-20); CALCIUM 10.4 mg/dL (8.4-10.2); CARBON DIOXIDE 29 mmol/L (22-30); CHLORIDE 102 mmol/L (98-107); GLUCOSE 138 mg/dL (75-110); POTASSIUM 4.6 mmol/L (3.6-5.0); SODIUM 141.8 mmol/L (137-145)
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
[2018-01-13] MEDS ORDERED: LIDOCAINE 5% (700 MG) TRANSDERMAL ADH..PATCH TP ONE (19:34)
[2018-01-13] MEDS ORDERED: ACETAMINOPHEN 325 MG TABLET PO ONE (19:34)
[2018-01-13 19:56] VITALS: BP 118/67
--- NOTE | 2018-01-13 21:35 | EKG REPORT ---
SEVERITY:- ABNORMAL ECG - SINUS RHYTHM MULTIPLE VENTRICULAR PREMATURE COMPLEXES NONSPECIFIC INTRAVENTRICULAR CONDUCTION DELAY LVH WITH SECONDARY REPOLARIZATION ABNORMALITY : Confirmed by: Ryan Segovia MD 13-Jan-2018 21:34:58
== END 2018-01-13 19:57 | disposition home or self-care (01) ==
LOC: ER 17:12
DX: M79.10 Myalgia, unspecified site (principal); V89.2XXA Person injured in unspecified motor-vehicle accident, traffic, initial encounter; F17.200 Nicotine dependence, unspecified, uncomplicated; I50.9 Heart failure, unspecified; I25.10 Atherosclerotic heart disease of native coronary artery without angina pectoris; E78.00 Pure hypercholesterolemia, unspecified; I11.0 Hypertensive heart disease with heart failure; E11.9 Type 2 diabetes mellitus without complications; Z95.810 Presence of automatic (implantable) cardiac defibrillator
CPT/HCPCS: 93005; 99285; 36415; 85025; 80048; 84484; 71046; 70450; 72125; 93010; L0120

== ENCOUNTER → 2018-03-29 | Outpatient (CLI) | payer MEDICAID ==
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
== END ==
LOC: OD 13:31
PROVIDERS: ATTEND Podiatrist Foot & Ankle Surgery
DX: S92.355D Nondisplaced fracture of fifth metatarsal bone, left foot, subsequent encounter for fracture with routine healing (principal); X58.XXXD Exposure to other specified factors, subsequent encounter

== ENCOUNTER → 2018-05-09 | Outpatient (CLI) | payer MEDICAID ==
--- NOTE | 2018-05-09 11:13 | WOMENS IMAGING REPORT ---
EXAM DESCRIPTION: BONE DENSITY HIP/SPINE COMPLETED DATE/TIME: 05/09/2018 10:37 am REASON FOR STUDY: E28.310 SYMPTOMATIC PREMATURE MENOPAUSE E28.310 SYMPTOMATIC PREMATURE MENOPAUSE COMPARISON: None. TECHNIQUE: Dual-Energy X-ray Absorptiometry (DEXA) of the AP Spine and Hip. LIMITATIONS: None. FINDINGS: LUMBAR SPINE: The bone mineral density (BMD) measured from L1-L4 in the AP projection correlates with a T-score of -1.6, which is osteopenic as defined by the World Health Organization. HIP: The bone mineral density (BMD) measured in the left femoral neck at the hip correlates with a T-score of -1.0, which is borderline osteopenic as defined by the World Health Organization. IMPRESSION: 1. LUMBAR SPINE: Osteopenic 2. HIP: Borderline osteopenic COMMENT: The World Health Organization defines low BMD as follows: T-score: Normal: Greater than -1.0 Osteopenia: Between -1.0 and -2.5 Osteoporosis: Less than -2.5 without fractures Established osteoporosis: Less than -2.5 with fractures In general, you may wish to consider: Diagnosis Treatment Follow-up DEXA Normal BMD Prevention 2-3 years Osteopenia Prevention/Therapy 1-2 years Osteoporosis Therapy Yearly TECHNICAL DOCUMENTATION: JOB ID: [id number] 1930 [employer]- All Rights Reserved Reading location - IP/workstation name: [email or web address]
== END ==
LOC: WI 10:14
PROVIDERS: ATTEND Physician Assistant
DX: E28.310 Symptomatic premature menopause (principal)
CPT/HCPCS: 77080

== ENCOUNTER → 2018-07-12 | Outpatient (CLI) | payer MEDICAID ==
--- NOTE | 2018-07-12 11:59 | RADIOLOGY REPORT (SQ) ---
EXAM DESCRIPTION: CT LUMBAR SPINE WITHOUT COMPLETED DATE/TIME: 07/12/2018 9:04 am REASON FOR STUDY: G57.03 LESION OF SCIATIC NERVE, BILATERAL LOWER LIMBS G57.03 LESION OF SCIATIC NE RVE, BILATERAL LOWER LIMBS COMPARISON: CT abdomen pelvis 02/03/2016 TECHNIQUE: Axial images acquired through the lumbar spine without intravenous contrast. Images revi ewed with lung, soft tissue and bone windows. Reconstructed coronal and sagittal MPR images reviewed . All images stored on PACS. All CT scanners at this facility use dose modulation, iterative reconstruction, and/or weight based d osing when appropriate to reduce radiation dose to as low as reasonably achievable (ALARA). [facility]: Dose Right [facility]: CareDose [facility]: Dose Right [facility]: Teradose 4D [facility]: [employer] RADIATION DOSE: CT Rad equipment meets quality standard of care and radiation dose reduction techniq ues were employed. CTDIvol: 27.0 mGy. DLP: 772 mGy-cm. mGy. LIMITATIONS: None. FINDINGS: SEGMENTATION: Normal. No transitional anatomy. ALIGNMENT: Very mild convex leftward lumbar curvature unchanged from CT abdomen pelvis 02/03/2016 VERTEBRAL BODIES: No fractures. No dislocation. No acute findings. DISCS: The T12-L1, L1-2, and L2-3 disc levels are unremarkable At L3-4, mild diffuse posterior disc bulging is present with moderate bilateral facet and ligament hy pertrophy. No central or foraminal stenosis. At L4-5, minimal posterior disc bulging and mild bilateral facet arthropathy is present without signi ficant central or foraminal encroachment. At L5-S1, minimal posterior disc bulging is present mild right and moderate left facet arthropathy. No central or foraminal stenosis. PEDICLES, TRANSVERSE PROCESSES: No fractures. No dislocation. No acute findings. FACETS, POSTERIOR ELEMENTS: No fractures. No dislocation. HARDWARE: None in the spine. VISUALIZED RIBS: No fractures. 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 IMPRESSION: Bilateral SI joint arthritis TECHNICAL DOCUMENTATION: JOB ID: [id number] Quality ID # [id number]: Final reports with documentation of one or more dose reduction techniques (e.g., Au tomated exposure control, adjustment of the mA and/or kV according to patient size, use of iterative reconstruction technique) 2010 [employer]- All Rights Reserved Reading location - IP/workstation name: [email or web address]
== END ==
LOC: RAD 08:49
PROVIDERS: ATTEND Physician Assistant
DX: G57.03 Lesion of sciatic nerve, bilateral lower limbs (principal); E27.9 Disorder of adrenal gland, unspecified
CPT/HCPCS: 72131

== ENCOUNTER → 2018-12-24 | Outpatient (CLI) | payer MEDICAID ==
[2018-12-24 17:39] LABS: ALBUMIN 4.2 g/dL (3.5-5.0); ALKALINE PHOSPHATASE 77 U/L (38-126); ANION GAP 12 (5-19); ASPARTATE AMINO TRANSFERASE 33 U/L (14-36); BILIRUBIN,DIRECT 0.7 mg/dL (0.0-0.4); BILIRUBIN,TOTAL 2.5 mg/dL (0.2-1.3); BLOOD UREA NITROGEN 40 mg/dL (7-20); CALCIUM 10.1 mg/dL (8.4-10.2); CARBON DIOXIDE 32 mmol/L (22-30); CHLORIDE 95 mmol/L (98-107); GLUCOSE 128 mg/dL (75-110); POTASSIUM 3.2 mmol/L (3.6-5.0); TOTAL PROTEIN 7.4 g/dL (6.3-8.2)
== END ==
LOC: OD 16:07
PROVIDERS: ATTEND Nurse Practitioner
DX: I50.22 Chronic systolic (congestive) heart failure (principal); R06.02 Shortness of breath
CPT/HCPCS: 36415; 80053; 83880

== ENCOUNTER → 2019-02-13 | Outpatient (CLI) | payer MEDICAID ==
[2019-02-13 12:42] LABS: ALBUMIN 4.6 g/dL (3.5-5.0); ALKALINE PHOSPHATASE 78 U/L (38-126); ANION GAP 14 (5-19); ASPARTATE AMINO TRANSFERASE 23 U/L (14-36); BILIRUBIN,DIRECT 0.4 mg/dL (0.0-0.4); BILIRUBIN,TOTAL 1.5 mg/dL (0.2-1.3); BLOOD UREA NITROGEN 43 mg/dL (7-20); CALCIUM 10.5 mg/dL (8.4-10.2); CARBON DIOXIDE 23 mmol/L (22-30); CHLORIDE 106 mmol/L (98-107); GLUCOSE 137 mg/dL (75-110); POTASSIUM 4.8 mmol/L (3.6-5.0)
== END ==
LOC: OD 11:18
PROVIDERS: ATTEND Nurse Practitioner
DX: I50.42 Chronic combined systolic (congestive) and diastolic (congestive) heart failure (principal); I42.0 Dilated cardiomyopathy; I51.3 Intracardiac thrombosis, not elsewhere classified; Z86.73 Personal history of transient ischemic attack (TIA), and cerebral infarction without residual deficits; Z95.810 Presence of automatic (implantable) cardiac defibrillator
CPT/HCPCS: 36415; 80053; 83880